=== PATIENT | female | born 1975 | race Caucasian/White ===

== ENCOUNTER 2017-09-30 22:39 | Observation (INO) | payer SELFPAY ==
[~2017-09-30] VITALS: Ht 167.6 cm; Wt 71.0 kg
[2017-09-30 23:24] VITALS: BP 142/93; PULSE 97; RESP 18; TEMP 98.4; O2SAT 94
[2017-09-30 23:31] LABS: BILIRUBIN, URINE NEG (NEG); BLOOD, URINE NEG (NEG); GLUCOSE,URINE NEG (NEG); KETONE, URINE NEG (NEG); MUCUS URINE FEW /lpf (OCC); NITRITE,URINE NEG (NEG); PH, URINE 5.5 (5.0-8.5); SQUAMOUS EPITHELIAL CELL URINE 3 /hpf (0-5); URINE COLOR YELLOW (YELLW/STRAW); URINE LEUKOCYTE ESTERASE NEG (NEG)
[2017-09-30 23:36] LABS: AUTOMATED NEUTROPHIL # 2.3 TH/MM3 (1.8-7.7); BASOPHIL # 0.1 TH/MM3 (0-0.2); BASOPHIL % 1.3 % (0.0-2.0); EOSINOPHIL # 0.8 TH/MM3 (0-0.4); EOSINOPHIL % 14.7 % (0.0-4.0); HEMATOCRIT 40.1 % (35.0-46.0); HEMOGLOBIN 13.2 GM/DL (11.6-15.3); LYMPH % 28.7 % (9.0-44.0); LYMPHOCYTE # 1.6 TH/MM3 (1.0-4.8); MEAN CELL VOLUME 88.6 FL (80.0-100.0); MEAN CORPUSCULAR HEMOGLOBIN 29.2 PG (27.0-34.0); MEAN CORPUSCULAR HGB CONC 32.9 % (32.0-36.0); MEAN PLATELET VOLUME 7.7 FL (7.0-11.0); MONO % 14.4 % (0.0-8.0); MONOCYTE # 0.8 TH/MM3 (0-0.9); NEUT % 40.9 % (16.0-70.0); PLATELET COUNT 347 TH/MM3 (150-450); RED BLOOD COUNT 4.52 MIL/MM3 (4.00-5.30); RED CELL DISTRIBUTION WIDTH 14.2 % (11.6-17.2); WHITE BLOOD COUNT 5.6 TH/MM3 (4.0-11.0)
[2017-09-30 23:48] LABS: BICARBONATE 27.5 MEQ/L (21.0-32.0); CALCIUM 8.7 MG/DL (8.5-10.1); CREATININE 0.64 MG/DL (0.50-1.00)
[2017-09-30 23:51] LABS: TROPONIN I 0.15 NG/ML (0.02-0.05)
[2017-10-01] VITALS (13 sets, daily range): BP systolic 105–123; BP diastolic 75–89; PULSE 81–103; RESP 16–22; TEMP 98–98.7; O2SAT 93–97
[2017-10-01] MEDS ORDERED: ZOLO100T PO (00:45)
[2017-10-01] MEDS ORDERED: SODIUM CHLORID 0.9% 500 ML INJ 500 ML IV ONE (00:45)
[2017-10-01] MEDS ORDERED: ASPIRIN 81 MG CHEW TAB PO ONE (00:45)
[2017-10-01] MEDS: NITROGLYCERIN 0.4 MG SL 25 TABS/BTL SL SCH ×3 (01:04→01:20)
[2017-10-01] MEDS ORDERED: IOHEXOL 350 MG/ML 10 ML VIAL (for RAD DIAG) IVCONTRAST ONE (01:14)
--- NOTE | 2017-10-01 01:34 | RADRPT ---
EXAM DATE/TIME: 10/01/2017 01:05 [place] COMPARISON: No previous studies available for comparison. INDICATIONS : Shortness of breath x 1 week. IV CONTRAST: 75 cc Omnipaque 350 (iohexol) IV RADIATION DOSE: 5.17 CTDIvol (mGy) MEDICAL HISTORY : None SURGICAL HISTORY : None. ENCOUNTER: Initial ACUITY: 1 week PAIN SCALE: 0/10 LOCATION: chest TECHNIQUE: Volumetric scanning of the chest was performed using a pulmonary embolism protocol MIP images were re constructed. Using automated exposure control and adjustment of the mA and/or kV according to patien t size, radiation dose was kept as low as reasonably achievable to obtain optimal diagnostic quality images. DICOM format image data is available electronically for review and comparison. Follow-up recommendations for detected pulmonary nodules are based at a minimum on nodule size and pa tient risk factors according to Fleischner Society Guidelines. FINDINGS: PULMONARY ARTERIES: No filling defects are seen in the pulmonary arteries through the segmental level. LUNGS: There is scattered areas of groundglass infiltrate seen throughout both upper and lower lobes. The la rgest area involves the medial right upper lobe. This has a crazy paving appearance. No mass or bronc hiectasis. PLEURAE: There is no pleural thickening or pleural effusion. MEDIASTINUM: There is good visualization of the great vessels of the middle mediastinum. No evidence of mediastin al or hilar adenopathy/mass. MUSCULOSKELETAL: There is a subacute right lateral sixth rib fracture. Some callus formation noted. MISCELLANEOUS: The visualized upper abdominal organs demonstrate no acute abnormality. CONCLUSION: 1. Scattered areas of infiltrate most pronounced within the right upper lobe. Infectious etiology is suspected. Followup studies to document. resolution suggested. 2. No pulmonary emboli. Hernán Mederos Jr., MD on October 01, 2017 at 1:28 Board Certified Radiologist. This report was verified electronically.
[2017-10-01] MEDS ORDERED: HEPARIN-D5W 25,000 U/250 ML 250 ML IV PRN (01:45)
[2017-10-01] MEDS ORDERED: cefTRIAXone INJ 1,000 MG in SODIUM CHLORIDE 0.9% INJ 100 ML IV ONE (01:45)
[2017-10-01] MEDS ORDERED: AZITHROMYCIN INJ 500 MG in SODIUM CHLOR 0.9% 250 ML INJ 250 ML IV ONE (01:45)
[2017-10-01] MEDS ORDERED: methylPREDNISolone SOD SUCC 125 MG/2 ML VIAL IV PUSH ONE (01:45)
[2017-10-01] MEDS ORDERED: SODIUM CHLORIDE 0.9% FLUSH 10 ML FLUSH IV FLUSH PRN (02:00)
[2017-10-01] MEDS ORDERED: NALOXONE HCL 0.4 MG/ML AMP IV PUSH PRN (02:00)
[2017-10-01] MEDS: RESP: ALBUTEROL 2.5 MG/IPRATROPIUM 0.5 MG NEB (SCH) INH ×2 (02:02→02:03)
--- NOTE | 2017-10-01 02:08 | PD ---
HPI Chief Complaint: Respiratory Symptoms Time Seen by Provider: 00:34 Travel History International Travel<30 days: No Contact w/Intl Traveler<30days: No Traveled to known affect area: No History of Present Illness HPI 42-year-old female arrives to the ER with shortness of breath and coughing. Shortness of breath has been bothersome for about a week. She reports coughing spells can be severe and are associated with shortness of breath. At the time of the ER evaluation she denies chest pain. She has had no fever. She has no family history coronary artery disease. She has no history of diabetes hypertension hyperlipidemia. She states she smokes about 5 cigarettes a week. No drugs or alcohol. PFSH Past Medical History Medical History: Denies Significant Hx ?: Not Past Surgical History Surgical History: No Previous Surgery Social History Alcohol Use: No Tobacco Use: Yes Substance Use: No Allergies-Medications (Allergen,Severity, Reaction): Coded Allergies: No Known Allergies (Unverified , 10/01/17) Reported Meds & Prescriptions Reported Meds & Active Scripts Active Reported Zoloft (Sertraline HCl) 100 Mg Tab 100 Mg PO DAILY Review of Systems Except as stated in HPI: all other systems reviewed are Neg General / Constitutional: No: Fever Physical Exam Narrative GENERAL: 42-year-old female pleasant well-nourished audible no acute distress Vital Signs Date Time Temp Pulse Resp B/P (MAP) Pulse Ox O2 Delivery O2 Flow Rate FiO2 10/01/17 01:15 81 18 121/80 (94) 95 Nasal Cannula 2.00 10/01/17 00:43 96 20 123/89 (100) 96 Room Air 10/01/17 00:43 83 20 96 Room Air 09/30/17 23:24 98.4 97 18 142/93 (109) 94 Room Air SKIN: Warm and dry. HEAD: Atraumatic. Normocephalic. EYES: Pupils equal and round. No scleral icterus. No injection or drainage. ENT: No nasal bleeding or discharge. Mucous membranes pink and moist. NECK: Trachea midline. No JVD. CARDIOVASCULAR: Tachycardia. Regular rhythm. RESPIRATORY: No accessory muscle use. Clear to auscultation. Breath sounds equal bilaterally. GASTROINTESTINAL: Abdomen soft, non-tender, nondistended. Hepatic and splenic margins not palpable. MUSCULOSKELETAL: Extremities without clubbing, cyanosis, or edema. No obvious deformities. NEUROLOGICAL: Awake and alert. No obvious cranial nerve deficits. Motor grossly within normal limits. Five out of 5 muscle strength in the arms and legs. Normal speech. PSYCHIATRIC: Appropriate mood and affect; insight and judgment normal. Data Data Last Documented VS Vital Signs Date Time Temp Pulse Resp B/P (MAP) Pulse Ox O2 Delivery O2 Flow Rate FiO2 10/01/17 01:15 81 18 121/80 (94) 95 Nasal Cannula 2.00 09/30/17 23:24 98.4 Orders Orders Electrocardiogram (09/30/17 ) Complete Blood Count With Diff (09/30/17 22:55) Basic Metabolic Panel (Bmp) (09/30/17 22:55) Troponin I (09/30/17 22:55) Ckmb (Isoenzyme) Profile (09/30/17 22:55) Urinalysis - C+S If Indicated (09/30/17 22:56) CKMB (09/30/17 23:12) CKMB% (09/30/17 23:12) Electrocardiogram (10/01/17 00:39) Ecg Monitoring (10/01/17 00:39) Iv Access Insert/Monitor (10/01/17 00:39) Oximetry (10/01/17 00:39) Aspirin Chew (Aspirin Chew) (10/01/17 00:45) Nitroglycerin Sl (Nitrostat Sl) (10/01/17 00:45) Sodium Chlorid 0.9% 500 Ml Inj (Ns 500 M (10/01/17 00:45) Ct Pulmonary Angiogram (10/01/17 00:39) Iohexol 350 Inj (Omnipaque 350 Inj) (10/01/17 01:14) Blood Culture (10/01/17 01:40) Ceftriaxone Inj (Rocephin Inj) (10/01/17 01:45) Azithromycin Inj (Zithromax Inj) (10/01/17 01:45) Albuterol-Ipratropium Neb (Duoneb Neb) (10/01/17 01:45) Methylprednisolone So Succ Inj (Solumedr (10/01/17 01:45) Heparin-D5w 25,000 U/250 Ml (Heparin-D5w (10/01/17 01:45) Place In Observation (10/01/17 ) Vital Signs (Adult) Q4H (10/01/17 01:54) Activity Oob With Assistance (10/01/17 01:54) Veterinary Anatomist / Telemetry .CONTINUOUS (10/01/17 01:54) Sodium Chloride 0.9% Flush (Ns Flush) (10/01/17 02:00) Sodium Chloride 0.9% Flush (Ns Flush) (10/01/17 09:00) Basic Metabolic Panel (Bmp) (10/02/17 06:00) Complete Blood Count With Diff (10/02/17 06:00) Creatine Kinase (Cpk) (10/01/17 05:30) Creatine Kinase (Cpk) (10/01/17 11:30) Troponin I (10/01/17 05:30) Troponin I (10/01/17 11:30) Electrocardiogram (10/01/17 05:30) Electrocardiogram (10/01/17 11:30) Case Management Consult (10/01/17 01:54) Naloxone Inj (Narcan Inj) (10/01/17 02:00) Ceftriaxone Inj (Rocephin Inj) (10/02/17 02:00) Azithromycin (Zithromax) (10/01/17 09:00) Admit Order (Ed Use Only) (10/01/17 ) Veterinary Anatomist / Telemetry LONI.Q8H (10/01/17 01:56) Vital Signs (Adult) Q4H (10/01/17 01:56) Diet Npo (10/01/17 Breakfast) Activity Bed Rest (10/01/17 01:56) Notify Dr: Other (10/01/17 01:56) Labs Laboratory Tests Test 09/30/17 23:12 White Blood Count 5.6 TH/MM3 Red Blood Count 4.52 MIL/MM3 Hemoglobin 13.2 GM/DL Hematocrit 40.1 % Mean Corpuscular Volume 88.6 FL Mean Corpuscular Hemoglobin 29.2 PG Mean Corpuscular Hemoglobin Concent 32.9 % Red Cell Distribution Width 14.2 % Platelet Count 347 TH/MM3 Mean Platelet Volume 7.7 FL Neutrophils (%) (Auto) 40.9 % Lymphocytes (%) (Auto) 28.7 % Monocytes (%) (Auto) 14.4 % Eosinophils (%) (Auto) 14.7 % Basophils (%) (Auto) 1.3 % Neutrophils # (Auto) 2.3 TH/MM3 Lymphocytes # (Auto) 1.6 TH/MM3 Monocytes # (Auto) 0.8 TH/MM3 Eosinophils # (Auto) 0.8 TH/MM3 Basophils # (Auto) 0.1 TH/MM3 CBC Comment DIFF FINAL Differential Comment Urine Color YELLOW Urine Turbidity CLEAR Urine pH 5.5 Urine Specific [place] 1.033 Urine Protein TRACE mg/dL Urine Glucose (UA) NEG mg/dL Urine Ketones NEG mg/dL Urine Occult Blood NEG Urine Nitrite NEG Urine Bilirubin NEG Urine Urobilinogen 2.0 MG/DL Urine Leukocyte Esterase NEG Urine RBC 1 /hpf Urine WBC 1 /hpf Urine Squamous Epithelial Cells 3 /hpf Urine Mucus FEW /lpf Microscopic Urinalysis Comment CULT NOT INDICATED Blood Urea Nitrogen 18 MG/DL Creatinine 0.64 MG/DL Random Glucose 97 MG/DL Calcium Level 8.7 MG/DL Sodium Level 140 MEQ/L Potassium Level 3.5 MEQ/L Chloride Level 106 MEQ/L Carbon Dioxide Level 27.5 MEQ/L Anion Gap 7 MEQ/L Estimat Glomerular Filtration Rate 101 ML/MIN Total Creatine Kinase 291 U/L Creatine Kinase MB 6.8 NG/ML Creatine Kinase MB % 2.3 % Troponin I 0.15 NG/ML [facility] Medical Decision Making Medical Screen Exam Complete: Yes Emergency Medical Condition: Yes Medical Record Reviewed: Yes Differential Diagnosis NSTEMI, unstable angina, coronary vasospasm, PE, PTX, aortic dissection, pericarditis, myocarditis, endocarditis, PNA, esophageal disease, aneurysm, musculoskeletal etiologies, anxiety, cocaine/sympathomimetic abuse Narrative Course EKG shows sinus rhythm with a rate of 81 normal axis intervals no acute ischemic injury pattern CBC & BMP Diagram 09/30/17 23:12 Calcium Level 8.7 Troponin [address] Angiography 10/01/17 0039 Signed Impressions: Service Date/Time: Sunday, October 01, 2017 01:05 - CONCLUSION: 1. Scattered areas of infiltrate most pronounced within the right upper lobe. Infectious etiology is suspected. Followup studies to document. resolution suggested. 2. No pulmonary emboli. Hernán Mederos Jr., MD The patient has an elevated troponin of 0.15. Occlusive coronary disease is considered much less likely. Patient has no evidence of acute ischemia on EKG CT angiography results appreciated. Rocephin azithromycin started. Blood cultures drawn. Case discussed with hospitalist service Dr. Ontiveros. Critical Care Narrative Aggregate critical care time was 35 minutes. Time to perform other separately billable procedures was not included in the critical care time. My time did not include minutes spent treating any other patients simultaneously or on activities that did not directly contribute to the patient's treatment. The services I provided to this patient were to treat and/or prevent clinically significant deterioration that could result in: Cardiopulmonary arrest I provided critical care services requiring my management, as noted below: Chart data review, documentation time, medication orders and management, vital sign assessments/reviewing monitor data, ordering and reviewing lab tests, ordering and interpreting/reviewing x-rays and diagnostic studies, care of the patient and discussion of the patient with the admitting physicians. Diagnosis Primary Impression: PNA (pneumonia) Qualified Codes: J18.9 - Pneumonia, unspecified organism Additional Impression: Elevated troponin I level Admitting Information Admitting Physician Requests: Austen Hickman MD Oct 01, 2017 02:08
--- NOTE | 2017-10-01 02:50 | HHI.HP ---
HPI Service [facility] Primary Care Physician No Primary Care Physician Admission Diagnosis Dyspnea; PNA Diagnoses: Chief Complaint: dyspnea Travel History International Travel<30 Days: No Contact w/Intl Traveler <30 Da: No Traveled to Known Affected Are: No History of Present Illness 42 y/o female with a history of depression presented to the ED with complaints of shortness of breath. She states she was treated for bronchitis 1 month ago with antibiotics and for the last 1 week she has felt worse. She feels very short of breath, wheezing, productive cough with green sputum. She states she has been having fevers and chills at home with unknown temp. She has not been able to smoke due to the short of breath and has just been laying in bed. She denies any chest pain, but states when she coughs she has muscular rib pain. Review of Systems Except as stated in HPI: all other systems reviewed are Neg Past Family Social History Past Medical History depression Past Surgical History Patient denies any surgical history Reported Medications Reported Meds & Active Scripts Active Reported Zoloft (Sertraline HCl) 100 Mg Tab 100 Mg PO DAILY Allergies: Coded Allergies: No Known Allergies (Unverified , 10/01/17) Active Ordered Medications Current Medications Medications (Trade) Dose Ordered Sig/Marlen Route Start Time Stop Time Status Last Admin (NS Flush) 2 ml UNSCH PRN IV FLUSH 10/01/17 02:00 (NS Flush) 2 ml BID IV FLUSH 10/01/17 09:00 (Narcan Inj) 0.4 mg UNSCH PRN IV PUSH 10/01/17 02:00 Ceftriaxone Sodium 1000 mg/ Sodium Chloride 100 ml @ 200 mls/hr Q24H IV 10/02/17 02:00 (Zithromax) 500 mg DAILY PO 10/01/17 09:00 (Duoneb Neb) 1 ampule Q4HR NEB NEB 10/01/17 03:00 (Duoneb Neb) 1 ampule Q2HR NEB PRN NEB 10/01/17 03:00 (Mucinex Er) 600 mg BID PO 10/01/17 09:00 Family History Patient denies any family history, no heart disease or cancer Social History Tobacco use: a few cigarettes a day Alcohol use: rarely Physical Exam Vital Signs Vital Signs Date Time Temp Pulse Resp B/P (MAP) Pulse Ox O2 Delivery O2 Flow Rate FiO2 10/01/17 01:15 81 18 121/80 (94) 95 Nasal Cannula 2.00 10/01/17 00:43 96 20 123/89 (100) 96 Room Air 10/01/17 00:43 83 20 96 Room Air 09/30/17 23:24 98.4 97 18 142/93 (109) 94 Room Air Physical Exam GENERAL: This is a well-nourished, well-developed patient, in no apparent distress. SKIN: No rashes, ecchymoses or lesions. Cool and dry. HEAD: Atraumatic. Normocephalic. EYES: Pupils equal round and reactive. ENT: Nose without bleeding, purulent drainage or septal hematoma. Airway patent. NECK: Trachea midline. No JVD or lymphadenopathy. CARDIOVASCULAR: Regular rate and rhythm without murmurs, gallops, or rubs. RESPIRATORY: Right upper lobe wheezing, bronchial lung sounds throughout GASTROINTESTINAL: Abdomen soft, non-tender, nondistended. MUSCULOSKELETAL: Extremities without clubbing, cyanosis, or edema. No calf tenderness. NEUROLOGICAL: Awake and alert. Motor and sensory grossly within normal limits. Normal speech. Laboratory Laboratory Tests Test 09/30/17 23:12 White Blood Count 5.6 Red Blood Count 4.52 Hemoglobin 13.2 Hematocrit 40.1 Mean Corpuscular Volume 88.6 Mean Corpuscular Hemoglobin 29.2 Mean Corpuscular Hemoglobin Concent 32.9 Red Cell Distribution Width 14.2 Platelet Count 347 Mean Platelet Volume 7.7 Neutrophils (%) (Auto) 40.9 Lymphocytes (%) (Auto) 28.7 Monocytes (%) (Auto) 14.4 Eosinophils (%) (Auto) 14.7 Basophils (%) (Auto) 1.3 Neutrophils # (Auto) 2.3 Lymphocytes # (Auto) 1.6 Monocytes # (Auto) 0.8 Eosinophils # (Auto) 0.8 Basophils # (Auto) 0.1 CBC Comment DIFF FINAL Differential Comment Urine Color YELLOW Urine Turbidity CLEAR Urine pH 5.5 Urine Specific [place] 1.033 Urine Protein TRACE Urine Glucose (UA) NEG Urine Ketones NEG Urine Occult Blood NEG Urine Nitrite NEG Urine Bilirubin NEG Urine Urobilinogen 2.0 Urine Leukocyte Esterase NEG Urine RBC 1 Urine WBC 1 Urine Squamous Epithelial Cells 3 Urine Mucus FEW Microscopic Urinalysis Comment CULT NOT INDICATED Blood Urea Nitrogen 18 Creatinine 0.64 Random Glucose 97 Calcium Level 8.7 Sodium Level 140 Potassium Level 3.5 Chloride Level 106 Carbon Dioxide Level 27.5 Anion Gap 7 Estimat Glomerular Filtration Rate 101 Total Creatine Kinase 291 Creatine Kinase MB 6.8 Creatine Kinase MB % 2.3 Troponin I 0.15 Date/Time Source Procedure Growth Status 10/01/17 02:33 Blood Peripheral Aerobic Blood Culture Pending Received 10/01/17 02:33 Blood Peripheral Anaerobic Blood Culture Pending Received Result Diagram: 09/30/17 2312 09/30/[address] Angiography 10/01/17 0039 Signed Impressions: Service Date/Time: Friday, October 01, 2017 01:05 - CONCLUSION: 1. Scattered areas of infiltrate most pronounced within the right upper lobe. Infectious etiology is suspected. Followup studies to document. resolution suggested. 2. No pulmonary emboli. MD Gustavo Colón Jr. VTE Risk Assessment Caprini VTE Risk Assessment: No/Low Risk (score <= 1) Caprini Risk Assessment Model Point Value = 1 Point Value = 2 Point Value = 3 Point Value = 5 Age 41-60 Minor surgery BMI > 25 kg/m2 Swollen legs Varicose veins or History of unexplained or recurrent spontaneous Oral contraceptives or hormone replacement Sepsis (< 1 month) Serious lung disease, including pneumonia (< 1 month) Abnormal pulmonary function Acute myocardial infarction Congestive heart failure (< 1 month) History of inflammatory bowel disease Medical patient at bed rest Age 61-74 Arthroscopic surgery Major open surgery (> 45 min) Laparoscopic surgery (> 45 min) Malignancy Confined to bed (> 72 hours) Immobilizing plaster cast Central venous access Age >= 75 History of VTE Family history of VTE Factor V Leiden Prothrombin [id number] Lupus anticoagulant Anticardiolipin antibodies Elevated serum homocysteine Heparin-induced thrombocytopenia Other congenital or acquired thrombophilia Stroke (< 1 month) Elective arthroplasty Hip, pelvis, or leg fracture Acute spinal cord injury (< 1 month) Prophylaxis Regimen Total Risk Factor Score Risk Level Prophylaxis Regimen 0-1 Low Early ambulation 2 Moderate Order ONE of the following: *Sequential Compression Device (SCD) *Heparin 5000 units SQ BID 3-4 Higher Order ONE of the following medications: *Heparin 5000 units SQ TID *Enoxaparin/Lovenox 40 mg SQ daily (WT < 150 kg, CrCl > 30 mL/min) *Enoxaparin/Lovenox 30 mg SQ daily (WT < 150 kg, CrCl > 10-29 mL/min) *Enoxaparin/Lovenox 30 mg SQ BID (WT < 150 kg, CrCl > 30 mL/min) AND/OR *Sequential Compression Device (SCD) 5 or more Highest Order ONE of the following medications: *Heparin 5000 units SQ TID (Preferred with Epidurals) *Enoxaparin/Lovenox 40 mg SQ daily (WT < 150 kg, CrCl > 30 mL/min) *Enoxaparin/Lovenox 30 mg SQ daily (WT < 150 kg, CrCl > 10-29 mL/min) *Enoxaparin/Lovenox 30 mg SQ BID (WT < 150 kg, CrCl > 30 mL/min) AND *Sequential Compression Device (SCD) Assessment and Plan Problem List: (1) PNA (pneumonia) ICD Code: J18.9 - Pneumonia, unspecified organism Status: Acute (2) Elevated troponin I level ICD Code: R74.8 - Abnormal levels of other serum enzymes Status: Acute Assessment and Plan 42 y/o female with a history of depression presented to the ED with complaints of shortness of breath. PNA, unilateral, right upper CT angiogram reviewed and shows Scattered areas of infiltrate most pronounced within the right upper lobe. -Duonebs scheduled and prn -Solumedrol IV -Protonix po for GI prophylaxis -IV antibiotics: Zithromax and Rocephin -Guaifenesin BID -Sputum culture ordered Elevated troponin, patient denies chest pain, likely due to excessive coughing r/o ACS Troponin .15, ck-mb 6.8 -Serial troponin and EKGs -CPK in AM Depression, chronic -Resume home medications zoloft DVT prophylaxis: SCDs Discussed Condition With Patient and RN Problem Qualifiers (1) PNA (pneumonia): Qualified Codes: J18.1 - Lobar pneumonia, unspecified organism Opal Romero Oct 01, 2017 02:50
[2017-10-01] MEDS ORDERED: RESP: ALBUTEROL 2.5 MG/IPRATROPIUM 0.5 MG NEB (PRN) NEB (03:00)
[2017-10-01] MEDS: RESP: ALBUTEROL 2.5 MG/IPRATROPIUM 0.5 MG NEB (SCH) NEB ×6 (03:12→20:52)
[2017-10-01 04:41] LABS: TROPONIN I 0.16 NG/ML (0.02-0.05)
[2017-10-01] MEDS: methylPREDNISolone SOD SUCC 40 MG/1 ML VIAL IV PUSH SCH ×3 (07:56→20:03)
[2017-10-01] MEDS: guaiFENesin E.R. 600 MG TAB PO SCH ×2 (08:21→20:03)
[2017-10-01] MEDS: PANTOPRAZOLE SOD 20 MG DELAYED RELEASE TAB PO SCH (08:22)
[2017-10-01] MEDS: SODIUM CHLORIDE 0.9% FLUSH 10 ML FLUSH IV FLUSH SCH ×2 (08:22→20:03)
[2017-10-01] MEDS: SERTRALINE HCL 100 MG TAB PO SCH (08:22)
[2017-10-01] MEDS: AZITHROMYCIN 250 MG TAB PO SCH (08:22)
--- NOTE | 2017-10-01 10:24 | HHI.PR ---
Subjective Remarks Follow-up visit pneumonia, elevated troponin. Patient seen and examined today. Reports she is breathing a lot better but continues to have some wheezing. Denies pain and discomfort. Denies chest pain, palpitations, headaches, dizziness. Denies fevers, chills, n/v/d. Denies dysuria. Objective Vitals Vital Signs Date Time Temp Pulse Resp B/P (MAP) Pulse Ox O2 Delivery O2 Flow Rate FiO2 10/01/17 08:28 94 21 10/01/17 07:50 98.6 84 19 117/77 (90) 93 Room Air 10/01/17 04:51 88 16 111/75 (87) 96 Room Air 10/01/17 03:14 94 10/01/17 01:15 81 18 121/80 (94) 95 Nasal Cannula 2.00 10/01/17 00:43 96 20 123/89 (100) 96 Room Air 10/01/17 00:43 83 20 96 Room Air 09/30/17 23:24 98.4 97 18 142/93 (109) 94 Room Air Result Diagram: 09/30/17 2312 09/30/17 [address] Angiography 10/01/17 0039 Signed Impressions: Service Date/Time: Sunday, October 01, 2017 01:05 - CONCLUSION: 1. Scattered areas of infiltrate most pronounced within the right upper lobe. Infectious etiology is suspected. Followup studies to document. resolution suggested. 2. No pulmonary emboli. Hernán Mederos Jr., MD Objective Remarks GENERAL: This is a well-nourished, well-developed patient, in no apparent distress. SKIN: Warm and dry. Tattoos back area HEENT: Normocephalic. Pupils equal round and reactive. Nose without bleeding. Airway patent. NECK: Trachea midline. CARDIOVASCULAR: Regular rate and rhythm without murmurs, gallops, or rubs. RESPIRATORY: Expiratory wheezes. Diminished at the bases. GASTROINTESTINAL: Abdomen soft, non-tender, nondistended. Bowel Sounds normoactive x4. MUSCULOSKELETAL: Extremities without clubbing, cyanosis, or edema. NEUROLOGICAL: Awake and alert. Oriented to time, place, person. No focal neuro deficit. Moves all extremities. Normal speech. A/P Problem List: (1) PNA (pneumonia) ICD Code: J18.9 - Pneumonia, unspecified organism Status: Acute (2) Elevated troponin I level ICD Code: R74.8 - Abnormal levels of other serum enzymes Status: Acute Assessment and Plan 42 y/o female with a history of depression presented to the ED with complaints of shortness of breath. PNA, unilateral, right upper Possible Underlying COPD, smoker -CT angiogram reviewed and shows Scattered areas of infiltrate most pronounced within the right upper lobe. -Duonebs scheduled and prn -Solumedrol IV -Protonix po for GI prophylaxis -IV antibiotics: Zithromax and Rocephin -Guaifenesin BID -Sputum culture pending results -Blood cultures pending Elevated troponin, patient denies chest pain, likely due to excessive coughing r/o ACS Troponin 0.15, ck-mb 6.8 -Possibly demand ischemia -Serial troponin 0.15-->0.16 -Serial EKG. EKG reviewed SR without ST changes noted -CPK improving Depression, chronic -Resume home medications zoloft DVT prophylaxis: SCDs Problem Qualifiers (1) PNA (pneumonia): Qualified Codes: J18.1 - Lobar pneumonia, unspecified organism Angeles Leary Oct 01, 2017 10:24
[2017-10-01 13:06] LABS: TROPONIN I 0.05 NG/ML (0.02-0.05)
--- NOTE | 2017-10-01 22:54 | EKG ---
Date Performed: 10/01/2017 Time Performed: 11:28:02 PTAGE: 42 years EKG: Sinus rhythm WITH MARKED SINUS ARRHYTHMIA BORDERLINE ECG PREVIOUS TRACING : 10/01/2017 02.28 Since the previous tracing, no significant change noted DOCTOR: Shaheen Adames Interpretating Date/Time 10/01/2017 22:54:13
--- NOTE | 2017-10-01 23:26 | EKG ---
Date Performed: 10/01/2017 Time Performed: 02:28:29 PTAGE: 42 years EKG: Sinus rhythm NORMAL ECG NO PREVIOUS TRACING DOCTOR: Shaheen Adames Interpretating Date/Time 10/01/2017 23:24:57
--- NOTE | 2017-10-01 23:29 | EKG ---
Date Performed: 10/01/2017 Time Performed: 00:48:43 PTAGE: 42 years EKG: Sinus rhythm BORDERLINE RIGHT AXIS DEVIATION BORDERLINE ECG PREVIOUS TRACING : 09/30/2017 23.01 Since the previous tracing, no significant change noted DOCTOR: Shaheen Adames Interpretating Date/Time 10/01/2017 23:26:24
--- NOTE | 2017-10-01 23:31 | EKG ---
Date Performed: 09/30/2017 Time Performed: 23:01:49 PTAGE: 42 years EKG: Sinus rhythm WITH SINUS ARRHYTHMIA NORMAL ECG NO PREVIOUS TRACING DOCTOR: Shaheen Adames Interpretating Date/Time 10/01/2017 23:27:47
[2017-10-02] VITALS (9 sets, daily range): BP systolic 106–128; BP diastolic 69–88; PULSE 72–97; RESP 16–20; TEMP 98–98.8; O2SAT 93–96
[2017-10-02] MEDS: RESP: ALBUTEROL 2.5 MG/IPRATROPIUM 0.5 MG NEB (SCH) NEB ×5 (00:09→21:01)
[2017-10-02] MEDS: cefTRIAXone INJ 1,000 MG in SODIUM CHLORIDE 0.9% INJ 100 ML IV SCH (02:11)
[2017-10-02] MEDS: methylPREDNISolone SOD SUCC 40 MG/1 ML VIAL IV PUSH SCH ×4 (02:11→20:02)
--- NOTE | 2017-10-02 07:34 | HHI.PR ---
Subjective Remarks Says she did not have chest pain yesterday and she felt only very short of breath. She does not have pain at this time. Shortness of breath is improved. No fever chills nausea or vomiting Objective Vitals Vital Signs Date Time Temp Pulse Resp B/P (MAP) Pulse Ox O2 Delivery O2 Flow Rate FiO2 10/02/17 04:23 98.3 97 16 124/87 (99) 95 10/02/17 00:41 98.4 93 16 118/75 (89) 93 10/01/17 21:43 103 10/01/17 20:52 94 10/01/17 20:15 98.0 92 16 105/79 (88) 94 10/01/17 18:00 93 10/01/17 18:00 93 10/01/17 15:57 98.7 100 20 111/76 (88) 97 10/01/17 13:12 98.6 97 20 119/84 (96) 94 10/01/17 11:59 10/01/17 11:57 98.0 95 22 116/80 (92) 93 Room Air 10/01/17 08:28 94 21 10/01/17 07:50 98.6 84 19 117/77 (90) 93 Room Air I/O 10/01/17 10/01/17 10/01/17 10/02/17 10/02/17 10/02/17 07:00 15:00 23:00 07:00 15:00 23:00 Intake Total 200 ml Balance 200 ml Intake Oral 200 ml # Voids 1 Result Diagram: 09/30/17 2312 09/30/[address] Angiography 10/01/17 0039 Signed Impressions: Service Date/Time: Sunday, October 01, 2017 01:05 - CONCLUSION: 1. Scattered areas of infiltrate most pronounced within the right upper lobe. Infectious etiology is suspected. Followup studies to document. resolution suggested. 2. No pulmonary emboli. Hernán Mederos Jr., MD Objective Remarks GENERAL: This is a well-nourished, well-developed patient, in no apparent distress. SKIN: Warm and dry. Tattoos back area HEENT: Normocephalic. Pupils equal round and reactive. Nose without bleeding. Airway patent. NECK: Trachea midline. CARDIOVASCULAR: Regular rate and rhythm without murmurs, gallops, or rubs. RESPIRATORY: Expiratory wheezes. Diminished at the bases. GASTROINTESTINAL: Abdomen soft, non-tender, nondistended. Bowel Sounds normoactive x4. MUSCULOSKELETAL: Extremities without clubbing, cyanosis, or edema. NEUROLOGICAL: Awake and alert. Oriented to time, place, person. No focal neuro deficit. Moves all extremities. Normal speech. A/P Problem List: (1) PNA (pneumonia) ICD Code: J18.9 - Pneumonia, unspecified organism Status: Acute (2) Elevated troponin I level ICD Code: R74.8 - Abnormal levels of other serum enzymes Status: Acute Assessment and Plan 42 y/o female with a history of depression presented to the ED with complaints of shortness of breath. PNA, unilateral, right upper Possible Underlying COPD, smoker -CT angiogram reviewed and shows Scattered areas of infiltrate most pronounced within the right upper lobe. -Duonebs scheduled and prn -Solumedrol IV -Protonix po for GI prophylaxis -IV antibiotics: Zithromax and Rocephin -Guaifenesin BID -Sputum culture pending results -Blood cultures pending Elevated troponin, patient denies chest pain, likely due to excessive coughing r/o ACS Troponin 0.15, ck-mb 6.8 -Possibly demand ischemia -Serial troponin 0.15-->0.16 -Serial EKG. EKG reviewed SR without ST changes noted -CPK improving Depression, chronic -Resume home medications zoloft DVT prophylaxis: SCDs 42 y/o female with a history of depression presented to the ED with complaints of shortness of breath. PNA, unilateral, right upper Possible Underlying COPD, smoker -CT angiogram reviewed and shows Scattered areas of infiltrate most pronounced within the right upper lobe. -Duonebs scheduled and prn -Solumedrol IV -Protonix po for GI prophylaxis -IV antibiotics: Zithromax and Rocephin -Guaifenesin BID -Sputum culture pending results -Blood cultures pending Elevated troponin, patient denies chest pain r/o ACS Troponin 0.15, ck-mb 6.8 -Possibly demand ischemia -Serial troponin 0.15-->0.16 -Serial EKG. EKG reviewed SR without ST changes noted -CPK improving Depression, chronic -Resume home medications zoloft DVT prophylaxis: SCDs Discharge when improved. Possible discharge in 1 or 2 days. Sputum and blood cultures are pending. Problem Qualifiers (1) PNA (pneumonia): Qualified Codes: J18.1 - Lobar pneumonia, unspecified organism Violet Coleman MD Oct 02, 2017 07:33
[2017-10-02] MEDS: SERTRALINE HCL 100 MG TAB PO SCH (08:03)
[2017-10-02] MEDS: guaiFENesin E.R. 600 MG TAB PO SCH ×2 (08:03→20:02)
[2017-10-02] MEDS: AZITHROMYCIN 250 MG TAB PO SCH (08:04)
[2017-10-02] MEDS: PANTOPRAZOLE SOD 20 MG DELAYED RELEASE TAB PO SCH (08:04)
[2017-10-02] MEDS: SODIUM CHLORIDE 0.9% FLUSH 10 ML FLUSH IV FLUSH SCH ×2 (08:05→20:02)
[2017-10-02 08:15] LABS: AUTOMATED NEUTROPHIL # 8.8 TH/MM3 (1.8-7.7); BASOPHIL % 0.2 % (0.0-2.0); EOSINOPHIL % 0.1 % (0.0-4.0); HEMATOCRIT 36.2 % (35.0-46.0); HEMOGLOBIN 12.2 GM/DL (11.6-15.3); LYMPH % 7.9 % (9.0-44.0); LYMPHOCYTE # 0.8 TH/MM3 (1.0-4.8); MEAN CELL VOLUME 87.9 FL (80.0-100.0); MEAN CORPUSCULAR HEMOGLOBIN 29.7 PG (27.0-34.0); MEAN CORPUSCULAR HGB CONC 33.8 % (32.0-36.0); MEAN PLATELET VOLUME 7.8 FL (7.0-11.0); MONO % 3.6 % (0.0-8.0); MONOCYTE # 0.4 TH/MM3 (0-0.9); NEUT % 88.2 % (16.0-70.0); PLATELET COUNT 365 TH/MM3 (150-450); RED BLOOD COUNT 4.11 MIL/MM3 (4.00-5.30); RED CELL DISTRIBUTION WIDTH 13.9 % (11.6-17.2); WHITE BLOOD COUNT 9.9 TH/MM3 (4.0-11.0)
[2017-10-02 08:29] LABS: BICARBONATE 24.4 MEQ/L (21.0-32.0); CALCIUM 8.9 MG/DL (8.5-10.1); CREATININE 0.61 MG/DL (0.50-1.00)
[2017-10-02] MEDS ORDERED: ACETAMINOPHEN 325 MG TAB PO PRN (17:00)
[2017-10-03] MEDS: RESP: ALBUTEROL 2.5 MG/IPRATROPIUM 0.5 MG NEB (SCH) NEB ×3 (00:27→08:17)
[2017-10-03 02:28] VITALS: BP 116/74; PULSE 92; RESP 16; TEMP 98; O2SAT 98
[2017-10-03] MEDS: methylPREDNISolone SOD SUCC 40 MG/1 ML VIAL IV PUSH SCH ×2 (02:32→09:17)
[2017-10-03] MEDS: cefTRIAXone INJ 1,000 MG in SODIUM CHLORIDE 0.9% INJ 100 ML IV SCH (02:33)
[2017-10-03 07:31] VITALS: PULSE 68
[2017-10-03] MEDS ORDERED: MEDR4PAK PO (07:40)
[2017-10-03] MEDS ORDERED: AZIT250T3 PO (07:40)
[2017-10-03] MEDS ORDERED: guaiFENesin ER PO (07:40)
[2017-10-03 07:41] VITALS: BP 116/80; PULSE 78; RESP 18; TEMP 98.1; O2SAT 97
[2017-10-03] MEDS ORDERED: CEFU1TAB18 PO (07:41)
--- NOTE | 2017-10-03 07:43 | HHI.DCPOC ---
Discharge Care Plan Diagnosis: (1) PNA (pneumonia) (2) Elevated troponin I level Your Health Problems Are: Inflammation Cough Shortness of Breath Goals to Promote Your Health * To prevent worsening of your condition and complications * To maintain your health at the optimal level Directions to Meet Your Goals Take your medications as prescribed Follow your dietary instruction Follow activity as directed Keep your appointments as scheduled Take your immunizations and boosters as scheduled If your symptoms worsen call your PCP, if no PCP go to Urgent Care Center or Emergency Room Smoking is Dangerous to Your Health. Avoid second hand smoke Call the 24-hour hour crisis hotline for domestic abuse at [place] Leary Oct 03, 2017 07:43
[2017-10-03] MEDS: PANTOPRAZOLE SOD 20 MG DELAYED RELEASE TAB PO SCH (09:17)
[2017-10-03] MEDS: AZITHROMYCIN 250 MG TAB PO SCH (09:17)
[2017-10-03] MEDS: SERTRALINE HCL 100 MG TAB PO SCH (09:17)
[2017-10-03] MEDS: SODIUM CHLORIDE 0.9% FLUSH 10 ML FLUSH IV FLUSH SCH (09:17)
[2017-10-03] MEDS: guaiFENesin E.R. 600 MG TAB PO SCH (09:17)
--- NOTE | 2017-10-03 09:44 | HHI.DS ---
Discharge Summary Admission Date Oct 01, 2017 at 01:59 Discharge Date: Oct 04, 2017 Admitting Diagnosis Dyspnea; PNA (1) PNA (pneumonia) ICD Code: J18.9 - Pneumonia, unspecified organism Status: Acute (2) Elevated troponin I level ICD Code: R74.8 - Abnormal levels of other serum enzymes Status: Acute Procedures none Brief History - From Admission 42 y/o female with a history of depression presented to the ED with complaints of shortness of breath. She states she was treated for bronchitis 1 month ago with antibiotics and for the last 1 week she has felt worse. She feels very short of breath, wheezing, productive cough with green sputum. She states she has been having fevers and chills at home with unknown temp. She has not been able to smoke due to the short of breath and has just been laying in bed. She denies any chest pain, but states when she coughs she has muscular rib pain. CBC/BMP: 10/02/17 0724 10/02/17 0724 Significant Findings Laboratory Tests Test 09/30/17 23:12 10/01/17 03:56 10/01/17 11:25 10/02/17 07:24 Monocytes (%) (Auto) 14.4 % (0.0-8.0) Eosinophils (%) (Auto) 14.7 % (0.0-4.0) Eosinophils # (Auto) 0.8 TH/MM3 (0-0.4) Urine Mucus FEW /lpf (OCC) Total Creatine Kinase 291 U/L (26-192) 241 U/L (26-192) 231 U/L (26-192) Creatine Kinase MB 6.8 NG/ML (0.5-3.6) 4.9 NG/ML (0.5-3.6) 4.1 NG/ML (0.5-3.6) Troponin I 0.15 NG/ML (0.02-0.05) 0.16 NG/ML (0.02-0.05) Neutrophils (%) (Auto) 88.2 % (16.0-70.0) Lymphocytes (%) (Auto) 7.9 % (9.0-44.0) Neutrophils # (Auto) 8.8 TH/MM3 (1.8-7.7) Lymphocytes # (Auto) 0.8 TH/MM3 (1.0-4.8) Random Glucose 139 MG/DL (74-106) Chloride Level 108 MEQ/L (98-107) Imaging Last Impressions CT Angiography 10/01/17 0039 Signed Impressions: Service Date/Time: Sunday, October 01, 2017 01:05 - CONCLUSION: 1. Scattered areas of infiltrate most pronounced within the right upper lobe. Infectious etiology is suspected. Followup studies to document. resolution suggested. 2. No pulmonary emboli. Hernán Mederos Jr., MD PE at Discharge GENERAL: This is a well-nourished, well-developed patient, in no apparent distress. SKIN: Warm and dry. Tattoos back area HEENT: Normocephalic. Pupils equal round and reactive. Nose without bleeding. Airway patent. NECK: Trachea midline. CARDIOVASCULAR: Regular rate and rhythm without murmurs, gallops, or rubs. RESPIRATORY: Expiratory wheezes. Diminished at the bases. GASTROINTESTINAL: Abdomen soft, non-tender, nondistended. Bowel Sounds normoactive x4. MUSCULOSKELETAL: Extremities without clubbing, cyanosis, or edema. NEUROLOGICAL: Awake and alert. Oriented to time, place, person. No focal neuro deficit. Moves all extremities. Normal speech. Pt update on day of discharge In bed ppears in nad. Not much cpugh. No sob sattign wellon room air. Says no chest pain or sob. No fevr or chills .Wants to fgo home Hospital Course GENERAL: This is a well-nourished, well-developed patient, in no apparent distress. SKIN: Warm and dry. Tattoos back area HEENT: Normocephalic. Pupils equal round and reactive. Nose without bleeding. Airway patent. NECK: Trachea midline. CARDIOVASCULAR: Regular rate and rhythm without murmurs, gallops, or rubs. RESPIRATORY: Expiratory wheezes. Diminished at the bases. GASTROINTESTINAL: Abdomen soft, non-tender, nondistended. Bowel Sounds normoactive x4. MUSCULOSKELETAL: Extremities without clubbing, cyanosis, or edema. NEUROLOGICAL: Awake and alert. Oriented to time, place, person. No focal neuro deficit. Moves all extremities. Normal speech. Plan A/P Problem List: (1) PNA (pneumonia) ICD Code: J18.9 - Pneumonia, unspecified organism Status: Acute (2) Elevated troponin I level ICD Code: R74.8 - Abnormal levels of other serum enzymes Status: Acute Assessment and Plan 42 y/o female with a history of depression presented to the ED with complaints of shortness of breath. PNA, unilateral, right upper Possible Underlying COPD, smoker -CT angiogram reviewed and shows Scattered areas of infiltrate most pronounced within the right upper lobe. -Duonebs scheduled and prn -Solumedrol IV -Protonix po for GI prophylaxis -IV antibiotics: Zithromax and Rocephin -Guaifenesin BID -Sputum culture pending results -Blood cultures pending Elevated troponin, patient denies chest pain, likely due to excessive coughing r/o ACS Troponin 0.15, ck-mb 6.8 -Possibly demand ischemia -Serial troponin 0.15-->0.16 -Serial EKG. EKG reviewed SR without ST changes noted -CPK improving Depression, chronic -Resume home medications zoloft DVT prophylaxis: SCDs 42 y/o female with a history of depression presented to the ED with complaints of shortness of breath. PNA, unilateral, right upper Possible Underlying COPD, smoker -CT angiogram reviewed and shows Scattered areas of infiltrate most pronounced within the right upper lobe. -Duonebs scheduled and prn -Solumedrol IV -Protonix po for GI prophylaxis -IV antibiotics: Zithromax and Rocephin -Guaifenesin BID -Sputum culture pending results -Blood cultures pending Elevated troponin, patient denies chest pain r/o ACS Troponin 0.15, ck-mb 6.8 -Possibly demand ischemia -Serial troponin 0.15-->0.16 -Serial EKG. EKG reviewed SR without ST changes noted -CPK improving Depression, chronic -Resume home medications zoloft DVT prophylaxis: SCDs Patient improved, DC home in stable condition to follow up as OP with PCP and consultants . Pt Condition on Discharge: Stable Discharge Disposition: Discharge Home Discharge Time: > 30 minutes Discharge Instructions DIET: Follow Instructions for: Heart Healthy Diet Activities you can perform: Regular-No Restrictions Follow up Referrals: PCP Follow-up - 2-3 Days New Medications: Cefuroxime (Ceftin) 250 Mg Tab 250 MG PO BID for Infection for 7 Days, #14 TAB Methylprednisolone Dosepak (Medrol Dosepak) 4 Mg Dspk 4 MG PO DIRECTED, #1 DSPK 0 Refills Per Pharmacist direction Azithromycin (Azithromycin) 250 Mg Tab 500 MG PO DAILY for Pneumonia, #3 TAB [guaiFENesin ER] () 600 MG TABCR 600 MG PO BID, #10 TAB Continued Medications: Sertraline (Zoloft) 100 Mg Tab 100 MG PO DAILY, #30 TAB 0 Refills Violet Coleman MD Oct 03, 2017 09:44
== END 2017-10-03 11:19 | disposition home or self-care (01) ==
LOC: NEPC 22:39 → NEDA 10-01 01:59 → NEDH 10-01 06:41 → NEPFCDU 10-01 12:10 → UNDODISOB 10-02 18:12
PROVIDERS: ADMIT Hospitalist; ATTEND Hospitalist
DX: J18.1 Lobar pneumonia, unspecified organism (principal); R74.8 Abnormal levels of other serum enzymes; I49.9 Cardiac arrhythmia, unspecified; F32.9 Major depressive disorder, single episode, unspecified; F17.210 Nicotine dependence, cigarettes, uncomplicated
CPT/HCPCS: 71275; 80048; 81001; 82550; 82552; 84484; 85025; 87040; 87070; 87205; 93005; 94640; 94664; 96361; 96365; 96367; 96375; 96376; 99291; G0378; J0456; J0696; J2920; J2930; J7040; J7050; Q9967

== ENCOUNTER 2018-01-28 12:03 | Inpatient (IN) ==
[2018-01-28] MEDS ORDERED: MethylPREDNISolone Sod Succinate Inj 125 MG/2 ML Vial IV.PUSH ONE (12:12)
[2018-01-28 12:50] LABS: Baso # (Auto) 0.1 th/mm3 (0.0-0.2); Baso % (Auto) 0.5 % (0.0-2.0); Eos # (Auto) 0.7 th/mm3 (0.0-0.4); Eos % (Auto) 5.9 % (0.0-4.0); Hematocrit 47.1 % (35.0-46.0); Hemoglobin 15.3 gm/dL (11.6-15.3); Lymph # (Auto) 2.5 th/mm3 (1.0-4.8); Lymph % (Auto) 22.6 % (9.0-44.0); Mean Corpuscular HGB Conc 32.6 % (32.0-36.0); Mean Corpuscular Hemoglobin 28.8 pg (27.0-34.0); Mean Corpuscular Volume 88.4 fL (80.0-100.0); Mean Platelet Volume 8.4 fL (7.0-11.0); Mono # (Auto) 0.7 th/mm3 (0.0-0.9); Mono % (Auto) 6.3 % (0.0-8.0); Neut # (Auto) 7.2 th/mm3 (1.8-7.7); Neut % (Auto) 64.7 % (16.0-70.0); Platelet Count 402 th/mm3 (150-450); Red Blood Count 5.33 mil/mm3 (4.00-5.30); Red Cell Distribution Width 16.5 % (11.6-17.2); White Blood Count 11.1 th/mm3 (4.0-11.0)
--- NOTE | 2018-01-28 12:50 | XR ---
EXAM DATE: 01/28/2018 12:40 PM EDT AGE/SEX: 43 years / Female INDICATIONS: Cough, fever, and congestion for 3 days. CLINICAL DATA: This is the patient's initial encounter. Patient reports that signs and symptoms have been present for 3 days and indicates a pain score of 0/10. MEDICAL/SURGICAL HISTORY: None. None. COMPARISON: No prior exams available for comparison. FINDINGS: Moderate hyperinflation. The heart and pulmonary vascularity are normal. The portion of the bony skel eton visualized is unremarkable. CONCLUSION: Moderate hyperinflation otherwise negative Electronically signed by: Antonio Ryan MD 01/28/2018 12:48 PM EDT
[2018-01-28 13:03] LABS: Calcium 9.2 mg/dL (8.5-10.1); Potassium 3.8 meq/L (3.5-5.1)
--- NOTE | 2018-01-28 13:51 | ED ---
HPI General Chief Complaint: Shortness of Breath/Dyspnea Stated Complaint: SOB Time Seen by Provider: 01/28/18 12:12 Source: patient Mode of arrival: ambulatory Limitations: no limitations History of Present Illness 43-year-old female came to the emergency room with history of shortness of breath that progressively worsening over past 1 week. Patient was a long-term smoker and quit 2 weeks ago. Patient says she has been coughing but no fever. She was in acute respiratory distress when she arrived. Oxygen saturation was 70% on room air. She was brought in emergently. Patient was having hard time talking. She says she has not been diagnosed with asthma or COPD. However she did have something similar that required breathing treatment couple months ago. Her still smokes around her. No history of chest pain. No history of recent long distance travel or prolonged hospitalization. MD Complaint: shortness of breath Onset (ago): week(s) (1) Related Data Home Medications Medication Instructions Recorded Confirmed Zoloft 100 mg PO DAILY 01/28/18 01/28/18 Previous Rx's Medication Instructions Recorded albuterol sulfate [Ventolin HFA] 2 puff INH Q4H PRN #1 g 02/01/18 budesonide-formoterol [Symbicort] 2 puff INH BID #1 g 02/01/18 famotidine 20 mg PO BID #60 tab 02/01/18 ipratropium bromide [Atrovent HFA] 2 puff INH QID #1 g 02/01/18 prednisone 40 mg PO DAILY #10 tab 02/01/18 Allergies Allergy/AdvReac Type Severity Reaction Status Date / Time No Known Allergies Allergy Verified 01/28/18 12:15 Review of Systems ROS Unobtainable All other systems reviewed negative except as stated in HPI Respiratory Reports [facility] Medical History Medical History Asthma (Acute) Surgical history unknown (Acute) Family History Family History Other Family history non-contributory Social History Social History Substance History: No History of Abuse Second Hand Smoke Exposure: Yes Smoking Status: Former smoker How Often Do You Have a Drink Containing Alcohol: Never Recent Travel in [facility] within the Last 8 Weeks: No Recent Out of Country Travel within the Last 8 Weeks: No Immunization History Tetanus Immunization: Unsure Hx Influenza Vaccine This Season: No Exam Narrative Exam Narrative: GENERAL: Awake, alert, significant respiratory distress, anxious SKIN: Focused skin assessment warm/dry. Cyanotic HEAD: Atraumatic. Normocephalic. EYES: Pupils equal and round. No scleral icterus. No injection or drainage. ENT: No nasal bleeding or discharge. Mucous membranes pink and moist. NECK: Trachea midline. No JVD. CARDIOVASCULAR: Regular rate and rhythm. No murmur appreciated. RESPIRATORY: Significant respiratory distress, tripoding, diminished air entry bilaterally with an expiratory wheeze GASTROINTESTINAL: Abdomen soft, non-tender, nondistended. Hepatic and splenic margins not palpable. MUSCULOSKELETAL: No obvious deformities. No clubbing. No cyanosis. No edema. NEUROLOGICAL: Awake and alert. No obvious cranial nerve deficits. Motor grossly within normal limits. Normal speech. PSYCHIATRIC: Appropriate mood and affect; insight and judgment normal. Course Initial Documented Vital Signs Pulse Rate 103 H 01/28/18 12:15 Respiratory Rate 40 H 01/28/18 12:15 Blood Pressure 85/51 L 01/28/18 12:15 Pulse Oximetry 81 L 01/28/18 12:15 Last Documented Vital Signs Temperature 98.0 F 02/01/18 08:00 Pulse Rate 68 02/01/18 08:32 Respiratory Rate 12 02/01/18 08:32 Blood Pressure 113/76 02/01/18 08:00 Pulse Oximetry 98 02/01/18 08:32 Critical Care Time Critical Care Time: Yes Total Critical Care Time: 60 Attestation: Acute respiratory distress with hypoxia. Multiple bronchodilator nebulizers administered, monitoring of oxygen and admission. Medical Decision Making MDM Narrative Medical decision making narrative: Patient was given 3 DuoNeb's [id number] emergently along with IV Solu-Medrol. Air entry significantly improved and patient was weaned from oxygen via nonrebreather to oxygen via nasal cannula. On nasal cannula oxygen saturation stayed above 95%. Patient acknowledged that she was feeling much better. Upon repeat auscultation there was some end expiratory wheeze and patient was given 2 albuterol nebulizers. I just reassessed her a little while ago and she continued to sound better. Have taken the supplemental oxygen off and monitoring her oxygen saturation is 91%. She has been educated about passive smoking. At this point I think it would be better to admit the patient. Chest x-ray is within normal limit. Labs are within normal limit. 3:22 PM patient continues to have oxygen saturation even on the blood gas of 84 % on room air. She has been put on 2 L of oxygen via nasal cannula and saturating 96%. I decided to admit her at this point. Awaiting for the hospitalist callback. Lab Data Result diagrams: 01/28/18 12:18 01/28/18 12:18 Lab Results 01/28/18 01/28/18 01/28/18 Range/Units 12:18 12:18 14:55 WBC 11.1 H (4.0-11.0) th/mm3 RBC 5.33 H (4.00-5.30) mil/mm3 Hgb 15.3 (11.6-15.3) gm/dL Hct 47.1 H (35.0-46.0) % MCV 88.4 (80.0-100.0) fL MCH 28.8 (27.0-34.0) pg MCHC 32.6 (32.0-36.0) % RDW 16.5 (11.6-17.2) % Plt Count 402 (150-450) th/mm3 MPV 8.4 (7.0-11.0) fL Neut % (Auto) 64.7 (16.0-70.0) % Lymph % (Auto) 22.6 (9.0-44.0) % [place] % (Auto) 6.3 (0.0-8.0) % Eos % (Auto) 5.9 H (0.0-4.0) % Baso % (Auto) 0.5 (0.0-2.0) % Neut # (Auto) 7.2 (1.8-7.7) th/mm3 Lymph # (Auto) 2.5 (1.0-4.8) th/mm3 [place] # (Auto) 0.7 (0.0-0.9) th/mm3 Eos # (Auto) 0.7 H (0.0-0.4) th/mm3 Baso # (Auto) 0.1 (0.0-0.2) th/mm3 WBC Differential . Differential Comment Auto diff final Puncture Site Right radial Patient Temperature 98.6 O2 Saturation 84 L* (90-100) % ABG pH 7.41 (7.380-7.420) ABG pCO2 35 L (38-42) mmHg ABG pO2 50 L* (61-120) mmHg ABG HCO3 22 (22-26) mmol/L ABG O2 Content 14.4 (12.0-20.0) Vol % ABG Base Excess -2.2 L (-2-2) mmol/L ABG Methemoglobin 0.4 (0-2) % Bk Test Present Hemoglobin 12.1 (12.0-16.0) G/DL Carboxyhemoglobin 1.1 (0-4) % O2 Delivery Device Room air Inspired O2 21 % Critical Value Yes Sodium 144 (136-145) meq/L Potassium 3.8 (3.5-5.1) meq/L Chloride 108 H (98-107) meq/L Carbon Dioxide 26.0 (21.0-32.0) meq/L Anion Gap 10 (5-15) meq/L BUN 22 H (7-18) mg/dL Creatinine 0.81 (0.50-1.00) mg/dL Estimated GFR 77 L (>89) mL/min Random Glucose 136 H (74-106) mg/dL Calcium 9.2 (8.5-10.1) mg/dL IgE (<= 214) kU/L 01/28/18 Range/Units 18:30 WBC (4.0-11.0) th/mm3 RBC (4.00-5.30) mil/mm3 Hgb (11.6-15.3) gm/dL Hct (35.0-46.0) % MCV (80.0-100.0) fL MCH (27.0-34.0) pg MCHC (32.0-36.0) % RDW (11.6-17.2) % Plt Count (150-450) th/mm3 MPV (7.0-11.0) fL Neut % (Auto) (16.0-70.0) % Lymph % (Auto) (9.0-44.0) % [place] % (Auto) (0.0-8.0) % Eos % (Auto) (0.0-4.0) % Baso % (Auto) (0.0-2.0) % Neut # (Auto) (1.8-7.7) th/mm3 Lymph # (Auto) (1.0-4.8) th/mm3 [place] # (Auto) (0.0-0.9) th/mm3 Eos # (Auto) (0.0-0.4) th/mm3 Baso # (Auto) (0.0-0.2) th/mm3 WBC Differential Differential Comment Puncture Site Patient Temperature O2 Saturation (90-100) % ABG pH (7.380-7.420) ABG pCO2 (38-42) mmHg ABG pO2 (61-120) mmHg ABG HCO3 (22-26) mmol/L ABG O2 Content (12.0-20.0) Vol % ABG Base Excess (-2-2) mmol/L ABG Methemoglobin (0-2) % Bk Test Hemoglobin (12.0-16.0) G/DL Carboxyhemoglobin (0-4) % O2 Delivery Device Inspired O2 % Critical Value Sodium (136-145) meq/L Potassium (3.5-5.1) meq/L Chloride (98-107) meq/L Carbon Dioxide (21.0-32.0) meq/L Anion Gap (5-15) meq/L BUN (7-18) mg/dL Creatinine (0.50-1.00) mg/dL Estimated GFR (>89) mL/min Random Glucose (74-106) mg/dL Calcium (8.5-10.1) mg/dL IgE 39.8 (<= 214) kU/L Imaging Data Radiologist's impression: Chest X-Ray 01/28/18 12:12 CONCLUSION: Moderate hyperinflation otherwise negative ECG Data Attestation: I personally reviewed and interpreted this ECG as follows: Interpretation: Twelve-lead EKG was reviewed by me. Normal sinus rhythm, normal axis, nonspecific ST-T wave changes. Heart rate of 92 bpm. Discharge Plan Discharge Disposition Patient Disposition: 30 Still Patient Discharge Condition Condition: Stable Discharge Order Discharge Orders: Discharge Order (Routine); Ordered 02/01/18 Ordered By: Edgard Lemus Discharge Details Diagnosis: Acute respiratory distress, Hypoxia, COPD with acute exacerbation, Asthma with status asthmaticus Physicians Team ED Provider: Anjana Godinez Primary Care Provider: Primary Care Susie Downing Attending Provider: Edgard Lemus Other Providers: Antonio Rico Discharge Interventions Interventions: ED Discharge Assessment Last Done: 01/28/18 17:34 Vital Signs Last Done: 01/28/18 14:30 Status ED Status: Left Department Discharge Information Discharge Date/Time: 01/28/18 19:03
[2018-01-28 15:02] LABS: ABG Base Excess -2.2 mmol/L (-2-2); ABG PCO2 35 mmHg (38-42); ABG PO2 50 mmHg (61-120)
[2018-01-28] MEDS ORDERED: Bisacodyl 10 MG Supp RECTAL PRN (15:34)
[2018-01-28] MEDS: Azithromycin 250 MG Tablet PO SCH (16:08)
--- NOTE | 2018-01-28 17:24 | P.HP ---
History of Present Illness Primary Care Physician: No Primary Care Physician History of Present Illness: This is a 43 yo female presents to the emergency department in respiratory distress. She was hypoxic saturation 70%. States she has been short of breath for 1 week with dry cough and wheezing. No fever, chills, chest pain and leg pain. Denies history of respiratory condition though she was admitted 4 months ago for COPD, pneumonia and elevated troponin from demand ischemia. She has been a smoker quit 2 weeks ago reports using 5 cigarettes a day for 20 years. In the emergency department, she received multiple doses of nebulization and IV steroids. She felt better and when she got up to use the restroom she again developed shortness of breath felt she is going to pass out. All other systems reviewed negative - Diagnosis (1) Acute respiratory distress (2) Hypoxia (3) COPD with acute exacerbation Inpatient Certification: I certify that the inpatient services were ordered in accordance with Medicare regulations governing the order. This includes certification that hospital inpatient services are reasonable and necessary and in the case of services not specified as inpatient-only under 42 CFR 419.22(n), that they are appropriately provided as inpatient services in accordance to with the 2-midnight benchmark under 43 CFR 412.3(e) Review of Systems All other systems reviewed negative except as stated in HPI PMFSH - History History Provided By: Patient - Medical History Medical History: Medical History (Last Updated 01/28/18 @ 17:28 by Edgard Lemus MD) Anxiety Depression GERD (gastroesophageal reflux disease) - Surgical History Surgical History: Surgical History (Last Updated 01/28/18 @ 17:29 by Edgard Lemus MD) No history of previous surgery - Family History Family History: Family History (Last Updated 01/28/18 @ 17:27 by Edgard Lemus MD) Other Family history non-contributory - Tobacco History Smoking Status: Former smoker - Alcohol History How Often Do You Have a Drink Containing Alcohol: Never - Substance Use History Substance History: No History of Abuse - Travel History Recent Travel in the [place] Within the Last 8 Weeks: No Recent Travel Out of the Country Within the Last 8 Weeks: No - Immunization History Tetanus Immunization: Unsure Hx Influenza Vaccine This Season: No Medications and Allergies Active Medications: Active Medications Acetaminophen (Tylenol) 650 mg PO Q4H PRN PRN Reason: Temp > 100.4 Al Hydroxide/Mg Hydroxide (Milk Of Magnesia Liq) 30 ml PO Q12H PRN PRN Reason: Mild Constipation Albuterol (Albuterol Neb (Prn)) 2.5 mg NEB Q2HR NEB PRN PRN Reason: SHORTNESS OF BREATH Albuterol (Duoneb Neb (Marlen)) 1 ampul NEB QID NEB MARLEN Azithromycin (Zithromax) 500 mg PO DAILY MARLEN Stop: 01/30/18 09:01 Last Admin: 01/28/18 16:08 Dose: 500 mg Bisacodyl (Dulcolax Supp) 10 mg RECTAL DAILY PRN PRN Reason: SEVERE CONSITIPATION Lactulose (Lactulose Liq) 30 ml PO DAILY PRN PRN Reason: SEVERE CONSITIPATION Methylprednisolone Sodium Succinate (Solumedrol Inj) 60 mg IV.PUSH Q6H MARLEN Metoclopramide HCl (Reglan Inj) 5 mg IV.PUSH Q6HR PRN; Protocol PRN Reason: NAUSEA OR VOMITING Ondansetron HCl (Zofran Inj) 4 mg IV.PUSH Q6H PRN PRN Reason: NAUSEA OR VOMITING Senna/Docusate Sodium (Georgette-Colace) 1 tab PO BID [facility] Sennosides (Senokot) 17.2 mg PO Q12H PRN PRN Reason: Moderate Constipation Sertraline HCl (Zoloft) 100 mg PO DAILY [facility] Sodium Chloride (Ns Flush) 2 ml IV.FLUSH PRN PRN PRN Reason: FLUSH AFTER USING IV ACCESS Sodium Chloride (Ns Flush) 2 ml IV.FLUSH BID [facility] Sodium Chloride (Ns Flush) 2 ml IV.FLUSH PRN PRN PRN Reason: FLUSH AFTER USING IV ACCESS Allergies Allergy/AdvReac Type Severity Reaction Status Date / Time No Known Allergies Allergy Verified 01/28/18 12:15 Home Medications Medication Instructions Recorded Confirmed Type Zoloft 100 mg PO DAILY 01/28/18 01/28/18 History Exam Vital signs: Vital Signs 01/28/18 12:15 01/28/18 12:19 01/28/18 12:20 Pulse Rate 103 H 96 H 98 H Respiratory Rate 40 H Blood Pressure 85/51 L Pulse Oximetry 81 L 100 100 01/28/18 13:30 01/28/18 14:19 01/28/18 14:30 Pulse Rate 112 H 112 H Respiratory Rate 23 27 H Blood Pressure 123/66 129/78 118/71 Pulse Oximetry 96 89 L 91 L 01/28/18 16:10 01/28/18 16:11 Pulse Rate 110 H Respiratory Rate 22 Blood Pressure 135/77 Pulse Oximetry 98 98 Intake & Output 01/27/18 01/28/18 01/28/18 18:59 06:59 18:59 Weight 44.452 kg Narrative: GENERAL: Well-developed and well-nourished in no distress SKIN: Warm and dry. HEAD: Atraumatic. Normocephalic. EYES: Pupils equal and round. No scleral icterus. No injection or drainage. ENT: No nasal bleeding or discharge. Mucous membranes pink and moist. NECK: Trachea midline. No JVD. CARDIOVASCULAR: Tachycardic RESPIRATORY: Equal breath sounds with bilateral expiratory wheezes GASTROINTESTINAL: Abdomen soft, non-tender, nondistended. MUSCULOSKELETAL: Extremities without clubbing, cyanosis, or edema. No obvious deformities. NEUROLOGICAL: Awake and alert. No obvious cranial nerve deficits. Motor grossly within normal limits. Five out of 5 muscle strength in the arms and legs. Normal speech. PSYCHIATRIC: Appropriate mood and affect; insight and judgment normal. Results - Labs CBC & Chem 7: 01/28/18 12:18 01/28/18 12:18 Labs: Laboratory Results - last 24 hr 01/28/18 01/28/18 01/28/18 12:18 12:18 14:55 WBC 11.1 H RBC 5.33 H Hgb 15.3 Hct 47.1 H MCV 88.4 MCH 28.8 MCHC 32.6 RDW 16.5 Plt Count 402 MPV 8.4 Neut % (Auto) 64.7 Lymph % (Auto) 22.6 [place] % (Auto) 6.3 Eos % (Auto) 5.9 H Baso % (Auto) 0.5 Neut # (Auto) 7.2 Lymph # (Auto) 2.5 [place] # (Auto) 0.7 Eos # (Auto) 0.7 H Baso # (Auto) 0.1 WBC Differential . Differential Comment Auto diff final Puncture Site Right radial Patient Temperature 98.6 O2 Saturation 84 L* ABG pH 7.41 ABG pCO2 35 L ABG pO2 50 L* ABG HCO3 22 ABG O2 Content 14.4 ABG Base Excess -2.2 L ABG Methemoglobin 0.4 Bk Test Present Hemoglobin 12.1 Carboxyhemoglobin 1.1 O2 Delivery Device Room air Inspired O2 21 Critical Value Yes Sodium 144 Potassium 3.8 Chloride 108 H Carbon Dioxide 26.0 Anion Gap 10 BUN 22 H Creatinine 0.81 Estimated GFR 77 L Random Glucose 136 H Calcium 9.2 - Imaging Impressions Chest X-Ray 01/28/18 12:12 CONCLUSION: Moderate hyperinflation otherwise negative Caprini VTE Risk Assessment Caprini VTE Risk Assessment: No/Low Risk (score <= 1) Caprini Risk Assessment Model: Point Value = 1 Point Value = 2 Point Value = 3 Point Value = 5 Age 41-60 Minor surgery BMI > 25 kg/m2 Swollen legs Varicose veins or History of unexplained or recurrent spontaneous Oral contraceptives or hormone replacement Sepsis (< 1 month) Serious lung disease, including pneumonia (< 1 month) Abnormal pulmonary function Acute myocardial infarction Congestive heart failure (< 1 month) History of inflammatory bowel disease Medical patient at bed rest Age 61-74 Arthroscopic surgery Major open surgery (> 45 min) Laparoscopic surgery (> 45 min) Malignancy Confined to bed (> 72 hours) Immobilizing plaster cast Central venous access Age >= 75 History of VTE Family history of VTE Factor V Leiden Prothrombin [id number] Lupus anticoagulant Anticardiolipin antibodies Elevated serum homocysteine Heparin-induced thrombocytopenia Other congenital or acquired thrombophilia Stroke (< 1 month) Elective arthroplasty Hip, pelvis, or leg fracture Acute spinal cord injury (< 1 month) Prophylaxis Regimen: Total Risk Factor Score Risk Level Prophylaxis Regimen 0-1 Low Early ambulation 2 Moderate Order ONE of the following: *Sequential Compression Device (SCD) *Heparin 5000 units SQ BID 3-4 Higher Order ONE of the following medications: *Heparin 5000 units SQ TID *Enoxaparin/Lovenox 40 mg SQ daily (WT < 150 kg, CrCl > 30 mL/min) *Enoxaparin/Lovenox 30 mg SQ daily (WT < 150 kg, CrCl > 10-29 mL/min) *Enoxaparin/Lovenox 30 mg SQ BID (WT < 150 kg, CrCl > 30 mL/min) AND/OR *Sequential Compression Device (SCD) 5 or more Highest Order ONE of the following medications: *Heparin 5000 units SQ TID (Preferred with Epidurals) *Enoxaparin/Lovenox 40 mg SQ daily (WT < 150 kg, CrCl > 30 mL/min) *Enoxaparin/Lovenox 30 mg SQ daily (WT < 150 kg, CrCl > 10-29 mL/min) *Enoxaparin/Lovenox 30 mg SQ BID (WT < 150 kg, CrCl > 30 mL/min) AND *Sequential Compression Device (SCD) Assessment and Plan - Assessment (1) Acute respiratory distress Code(s): R06.03 - Acute respiratory distress Status: Acute (2) Hypoxia Code(s): R09.02 - Hypoxemia Status: Acute (3) COPD with acute exacerbation Code(s): J44.1 - Chronic obstructive pulmonary disease with (acute) exacerbation Status: Acute - Plan 43-year-old female smoker presenting with shortness of breath, dyspnea on exertion, wheezing and dry cough. She was hypoxic saturation 70% in the emergency department. Received several doses of nebulization, IV steroids and oxygen with temporary relief. She will be admitted for further evaluation and treatment for COPD exacerbation. Start scheduled nebulization, IV steroids, Zithromax and oxygen to keep saturation at least 92%. Tobacco cessation. Consult pulmonary. Multiple medical conditions of GERD, anxiety and depression. Continue outpatient medications as appropriate DVT prophylaxis with SCD and early ambulation Discharge Planning: Home when clinically improved
[2018-01-28] MEDS: MethylPREDNISolone Sod Succinate Inj 40 MG/ML Vial IV.PUSH SCH (17:31)
--- NOTE | 2018-01-28 18:31 | MB ---
cc: Bri Rico MD DATE: 01/28/2018 HISTORY OF PRESENT ILLNESS: Ms. Poole is a 42-year-old white female with one prior admission here in September for respiratory insufficiency. It was felt that she had COPD. She left on some medications, but had no insurance, had no followup arranged, and over the course of the last 2 or 3 months has just gradually declined again. For the last week, she has really struggled to breathe. She became frightened today, presented to the emergency room with sats in the upper 70s, quite severely distressed. She received aerosol treatments, IV corticosteroids and oxygen and is feeling better, although she still says she feels very tight in her chest. A chest x-ray was negative. A chest x-ray on previous admission in September revealed some patchy infiltrates. She was treated for pneumonia. Although she was a former smoker, she was never really a heavy smoker, but over the course of 20 years, she would smoke several cigarettes a day. She has also had secondhand smoke exposure most of her adult life. It is also interesting that she was very ALLERGIC TO CATS growing up and within the last year or so she has had 2 cats in the home. When she touches them and then touches her eyes, she gets itching and watery eyes. She has not previously been diagnosed to have asthma, certainly not as a child. However, her mother had asthma and allergies. No previous cardiovascular history. She has had no anginal chest pain, but she has had tightness in her chest. She has no inhalers at home. She has cough, but it is dry, it is nonproductive. She has chronic reflux disease and had an ulcer at 17 years of age. Again, she has had no regular medical followup, she has no insurance and she does get indigestion frequently and uses [id number] ranitidine. No frontal headache or sinus symptoms. Recent diarrhea. No recent travel. The only animal exposures is to cats, to which she is probably allergic. PAST SURGICAL HISTORY: No prior surgeries. ALLERGIES: NO MEDICATION ALLERGIES KNOWN. CURRENT MEDICATIONS: Reviewed in the EMR. FAMILY HISTORY: Mother with history of allergies and asthma. Father apparently fine. A brother in good health. A daughter 22 years of age who did not grow up with allergies or asthma. 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 She lives with her boyfriend who smokes. Two cats at home. No other inhalation exposures. She denies any alcohol or illicit drug use. REVIEW OF SYSTEMS: Negative other than that noted above. PHYSICAL EXAMINATION: GENERAL: She is awake, alert, fairly comfortable at rest, but breathing at about 24-26 times a minute, a little breathless when she talks. VITAL SIGNS: Pulse rate is 100-110, regular. O2 saturations up from the 80s-98 on 2 liters. Blood pressure is 130/70. HEENT: Sclerae are anicteric. Mucous membranes are moist. NECK: Neck veins are flat. CHEST: Diminished breath sounds throughout with prolonged expiration and wheezing. No audible murmur. HEART: Regular rhythm. No audible S3. ABDOMEN: Soft, nontender. EXTREMITIES: No peripheral edema or calf tenderness. No clubbing. LABORATORY DATA: White count is 11,000; hemoglobin is 15; eosinophils 6%. Arterial blood gas on room air on presentation, pO2 of 50, pH of 7.4, pCO2 of 35. Electrolytes are normal. BUN is 22, creatinine 0.8. DISCUSSION: Ms. Poole probably has asthma. SHE IS PROBABLY ALSO ALLERGIC TO CATS and has significant secondhand smoke exposure and was smoking herself until about 2 weeks ago. She has responded well to the emergency room treatment. We will continue her on frequent aerosolized bronchodilators, along with corticosteroids and Zithromax has been started. She is not producing much sputum. We will monitor her peak flows, O2 saturations. I will check an IgE level and we will do a spirometry tomorrow. Further diagnostic and/or therapeutic intervention will depend on her ongoing clinical course and these additional studies. She is clearly going to need a followup. Maybe she is eligible to come to the clinic here since she has no insurance. She has been on no bronchodilator therapy since her admission in September and has simply continued to decline. R. MD FÉLIX Andrews/MOISES , 06:08 PM , 06:30 PM
[2018-01-28] MEDS ORDERED: ALPRAZolam 0.25 MG Tablet PO ONE (21:43)
[2018-01-29] MEDS: Dextrose 5%/NaCl 0.45% Inj 1,000 ML IV.CONT SCH ×2 (01:09→23:47)
[2018-01-29] MEDS: Senna/Docusate Sodium 8.6/50 MG Tablet PO SCH ×3 (01:10→23:23)
[2018-01-29] MEDS: MethylPREDNISolone Sod Succinate Inj 40 MG/ML Vial IV.PUSH SCH ×5 (01:11→23:43)
[2018-01-29] MEDS: Sertraline 100 MG Tablet PO SCH (08:24)
[2018-01-29] MEDS: Azithromycin 250 MG Tablet PO SCH (08:24)
[2018-01-29] MEDS: Acetaminophen 325 MG Tablet PO PRN ×2 (08:24→13:16)
--- NOTE | 2018-01-29 13:36 | ECG ---
Date Performed: 01/28/2018 Time Performed: 12:16:08 PTAGE: 43 years EKG: Sinus rhythm WITH SINUS ARRHYTHMIA RIGHT ATRIAL ENLARGEMENT BORDERLINE RIGHT AXIS DEVIATION MODERATE ST DEPRESSIO N, new since prior tracing- cannot rule out ischemia Clinical correlation is recommended ABNORMAL ECG PREVIOUS TRACING : 10/01/2017 11.28 DOCTOR: Bin Salcido Interpretating Date/Time 01/29/2018 13:29:36
--- NOTE | 2018-01-29 16:08 | P.PN ---
Subjective Interval history: F/U resp distress. She feels better but still on 2-4 L nasal cannula with dyspnea on exertion even with minimal activity. Discussed with pulmonary case management Physical Exam Vital signs: Vital Signs 01/28/18 16:10 01/28/18 16:11 01/28/18 20:00 Temperature 98.2 F Pulse Rate 110 H 98 H Respiratory Rate 22 22 Blood Pressure 135/77 128/77 Pulse Oximetry 98 98 96 01/28/18 20:38 01/28/18 23:31 01/29/18 00:00 Temperature 97.8 F Pulse Rate 118 H 93 H 88 Respiratory Rate 26 H 16 20 Blood Pressure 132/79 Pulse Oximetry 97 01/29/18 03:45 01/29/18 08:00 01/29/18 09:51 Temperature 97.7 F Pulse Rate 76 83 85 Respiratory Rate 15 18 17 Blood Pressure 130/81 Pulse Oximetry 95 98 01/29/18 12:00 Temperature 98.0 F Pulse Rate 100 H Respiratory Rate 20 Blood Pressure 133/84 Pulse Oximetry Intake & Output 01/28/18 01/29/18 01/29/18 18:59 06:59 18:59 Intake Total 360 / 360 Balance 360 / 360 Weight 44.452 kg 47.9 kg Intake: Oral 360 / 360 Other: # Voids 2 Narrative: GENERAL: Well-developed and well-nourished in no distress SKIN: Warm and dry. CARDIOVASCULAR: Tachycardic RESPIRATORY: Equal breath sounds with bilateral expiratory wheezes GASTROINTESTINAL: Abdomen soft, non-tender, nondistended. MUSCULOSKELETAL: Extremities without clubbing, cyanosis, or edema. No obvious deformities. NEUROLOGICAL: Awake and alert. No obvious cranial nerve deficits. Motor grossly within normal limits. Five out of 5 muscle strength in the arms and legs. Normal speech. PSYCHIATRIC: Appropriate mood and affect; insight and judgment normal. Results - Labs CBC & Chem 7: 01/28/18 12:18 01/28/18 12:18 Microbiology 01/28/18 12:18 Blood - Peripheral Aerobic Blood Culture - Preliminary No growth in 1 day 01/28/18 12:18 Blood - Peripheral Anaerobic Blood Culture - Preliminary No growth in 1 day 01/28/18 12:18 Blood - Peripheral Aerobic Blood Culture - Preliminary No growth in 1 day 01/28/18 12:18 Blood - Peripheral Anaerobic Blood Culture - Preliminary No growth in 1 day Assessment and Plan - Assessment (1) Acute respiratory distress Code(s): R06.03 - Acute respiratory distress Status: Acute (2) Hypoxia Code(s): R09.02 - Hypoxemia Status: Acute (3) COPD with acute exacerbation Code(s): J44.1 - Chronic obstructive pulmonary disease with (acute) exacerbation Status: Acute - Plan 43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 She was hypoxic saturation 70% in the emergency department. Asthma/COPD exacerbation. Slightly improved continue scheduled nebulization, IV steroids, Zithromax and oxygen to keep saturation at least 92%. Tobacco cessation. Consulted pulmonary. Check IgE and PFTs Multiple medical conditions of GERD, anxiety and depression. Continue outpatient medications as appropriate DVT prophylaxis with SCD and early ambulation Discharge Planning: Home when clinically improved. Discussed with case management she needs mandatory follow-up and possibly home oxygen
[2018-01-29] MEDS ORDERED: Aluminum/Magnesium/Simethacone Susp 30 ML UDC PO PRN (16:20)
[2018-01-29] MEDS: Famotidine 20 MG Tablet PO SCH (20:02)
[2018-01-29] MEDS: ALPRAZolam 0.25 MG Tablet PO PRN (23:42)
[2018-01-30] MEDS: MethylPREDNISolone Sod Succinate Inj 40 MG/ML Vial IV.PUSH SCH (05:59)
[2018-01-30] MEDS: Sertraline 100 MG Tablet PO SCH (09:33)
[2018-01-30] MEDS: Famotidine 20 MG Tablet PO SCH ×2 (09:33→22:16)
[2018-01-30] MEDS: Azithromycin 250 MG Tablet PO SCH (09:33)
[2018-01-30] MEDS: Senna/Docusate Sodium 8.6/50 MG Tablet PO SCH ×2 (09:33→22:17)
--- NOTE | 2018-01-30 17:23 | P.PN ---
Subjective Interval history: Follow-up COPD/asthma. States she is improving but still dyspneic on minimal exertion. Continues on nasal cannula. Peak flow only 175 Physical Exam Vital signs: Vital Signs 01/29/18 20:00 01/29/18 20:30 01/29/18 23:30 Temperature 98.1 F Pulse Rate 101 H 83 88 Respiratory Rate 22 16 18 Blood Pressure 126/81 Pulse Oximetry 94 L 94 L 01/30/18 00:00 01/30/18 03:49 01/30/18 04:00 Temperature 98.3 F 97.8 F Pulse Rate 103 H 94 H 95 H Respiratory Rate 20 16 20 Blood Pressure 132/83 115/75 Pulse Oximetry 95 95 01/30/18 08:00 01/30/18 09:00 01/30/18 12:00 Temperature 97.8 F 97.8 F Pulse Rate 84 84 82 Respiratory Rate 18 18 Blood Pressure 133/89 131/84 Pulse Oximetry 97 97 93 L 01/30/18 15:30 Temperature Pulse Rate 82 Respiratory Rate 18 Blood Pressure Pulse Oximetry Intake & Output 01/29/18 01/30/18 01/30/18 18:59 06:59 18:59 Intake Total 1236 / 1236 1480 / 1480 Balance 1236 / 1236 1480 / 1480 Weight 48.1 kg Intake: IV 496 / 496 1000 / 1000 D5W/1/2 NS Inj 1,000 ML @ 42 496 / 496 1000 / 1000 mls/hr IV[facility]CONT [id number] Rx# :[id number] Oral 740 / 740 480 / 480 Other: # Voids 4 3 Date of Last Bowel Movement 01/29/18 # Bowel Movements 0 Narrative: GENERAL: Well-developed and well-nourished in no distress SKIN: Warm and dry. CARDIOVASCULAR: Regular rate and rhythm RESPIRATORY: Equal breath sounds with no wheezes GASTROINTESTINAL: Abdomen soft, non-tender, nondistended. MUSCULOSKELETAL: Extremities without clubbing, cyanosis, or edema. No obvious deformities. NEUROLOGICAL: Awake and alert. No obvious cranial nerve deficits. Motor grossly within normal limits. Five out of 5 muscle strength in the arms and legs. Normal speech. Results - Labs CBC & Chem 7: 01/28/18 12:18 01/28/18 12:18 Laboratory Results - last 24 hr 01/28/18 18:30 IgE 39.8 Microbiology 01/28/18 12:18 Blood - Peripheral Aerobic Blood Culture - Preliminary No growth in 2 days 01/28/18 12:18 Blood - Peripheral Anaerobic Blood Culture - Preliminary No growth in 2 days 01/28/18 12:18 Blood - Peripheral Aerobic Blood Culture - Preliminary No growth in 2 days 01/28/18 12:18 Blood - Peripheral Anaerobic Blood Culture - Preliminary No growth in 2 days Assessment and Plan - Assessment (1) Acute respiratory distress Code(s): R06.03 - Acute respiratory distress Status: Acute (2) Hypoxia Code(s): R09.02 - Hypoxemia Status: Acute (3) COPD with acute exacerbation Code(s): J44.1 - Chronic obstructive pulmonary disease with (acute) exacerbation Status: Acute - Plan 43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 She was hypoxic saturation 70% in the emergency department. Asthma/COPD exacerbation. Slowly improving. Peak flow only 175 needs to be at least 200. Continue scheduled nebulization, IV steroids decreased to twice a day and start steroid inhaler, Zithromax and oxygen to keep saturation at least 92%. Tobacco cessation. Consulted pulmonary. Check IgE, patient may be allergic to cat and might need to get rid of her pet cat Multiple medical conditions of GERD, anxiety and depression. Continue outpatient medications as appropriate DVT prophylaxis with SCD and early ambulation Discharge Planning: Home when clinically improved. Discussed with case management she needs mandatory follow-up and possibly home oxygen
[2018-01-30] MEDS: MethylPREDNISolone Sod Succinate Inj 125 MG/2 ML Vial IV.PUSH SCH (22:16)
[2018-01-30] MEDS: Budesonide-Formoterol 160/4.5 MCG 6 GM Inhaler INH SCH (22:25)
[2018-01-30] MEDS: Dextrose 5%/NaCl 0.45% Inj 1,000 ML IV.CONT SCH (22:25)
[2018-01-30] MEDS: ALPRAZolam 0.25 MG Tablet PO PRN (22:25)
[2018-01-31] MEDS: MethylPREDNISolone Sod Succinate Inj 125 MG/2 ML Vial IV.PUSH SCH ×2 (10:42→21:22)
[2018-01-31] MEDS: Famotidine 20 MG Tablet PO SCH ×2 (10:44→21:22)
[2018-01-31] MEDS: Senna/Docusate Sodium 8.6/50 MG Tablet PO SCH ×2 (10:44→21:22)
[2018-01-31] MEDS: Sertraline 100 MG Tablet PO SCH (10:44)
[2018-01-31] MEDS: Budesonide-Formoterol 160/4.5 MCG 6 GM Inhaler INH SCH ×2 (10:45→21:23)
--- NOTE | 2018-01-31 17:00 | P.PN ---
Subjective Interval history: F/U COPD. Dloing better still on NC. OOB in the room only, PF 200 Physical Exam Vital signs: Vital Signs 01/30/18 20:00 01/30/18 20:24 01/31/18 00:00 Temperature 97.9 F 98.4 F Pulse Rate 85 84 99 H Respiratory Rate 20 20 20 Blood Pressure 136/83 143/91 H Pulse Oximetry 98 97 97 01/31/18 04:00 01/31/18 08:00 01/31/18 11:38 Temperature 97.9 F 97.9 F Pulse Rate 66 71 64 Respiratory Rate 20 18 14 Blood Pressure 116/56 L 117/79 Pulse Oximetry 97 98 98 01/31/18 12:00 01/31/18 16:53 Temperature 97.9 F Pulse Rate 84 72 Respiratory Rate 16 14 Blood Pressure 132/84 Pulse Oximetry 96 Intake & Output 01/30/18 01/31/18 01/31/18 18:59 06:59 18:59 Intake Total 720 / 720 1000 / 1000 Balance 720 / 720 1000 / 1000 Weight 48.1 kg Intake: IV 1000 / 1000 D5W/1/2 NS Inj 1,000 ML @ 42 1000 / 1000 mls/hr IV.CONT .[id number] Rx# :[id number] Oral 720 / 720 Other: # Voids 3 3 Date of Last Bowel Movement 01/29/18 # Bowel Movements 1 Narrative: GENERAL: Well-developed and well-nourished in no distress SKIN: Warm and dry. CARDIOVASCULAR: Regular rate and rhythm RESPIRATORY: Equal breath sounds with no wheezes GASTROINTESTINAL: Abdomen soft, non-tender, nondistended. MUSCULOSKELETAL: Extremities without clubbing, cyanosis, or edema. No obvious deformities. NEUROLOGICAL: Awake and alert. No obvious cranial nerve deficits. Motor grossly within normal limits. Five out of 5 muscle strength in the arms and legs. \ Results - Labs CBC & Chem 7: 01/28/18 12:18 01/28/18 12:18 Microbiology 01/28/18 12:18 Blood - Peripheral Aerobic Blood Culture - Preliminary No growth in 3 days 01/28/18 12:18 Blood - Peripheral Anaerobic Blood Culture - Preliminary No growth in 3 days 01/28/18 12:18 Blood - Peripheral Aerobic Blood Culture - Preliminary No growth in 3 days 01/28/18 12:18 Blood - Peripheral Anaerobic Blood Culture - Preliminary No growth in 3 days Assessment and Plan - Assessment (1) Acute respiratory distress Code(s): R06.03 - Acute respiratory distress Status: Acute (2) Hypoxia Code(s): R09.02 - Hypoxemia Status: Acute (3) COPD with acute exacerbation Code(s): J44.1 - Chronic obstructive pulmonary disease with (acute) exacerbation Status: Acute - Plan 43-year-old female 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 She was hypoxic saturation 70% in the emergency department. Asthma/COPD exacerbation. Slowly improving. Peak flow 200. Continue scheduled nebulization, IV steroids switch to po in am, steroid inhaler and oxygen to keep saturation at least 92%. S/p Zpak. Tobacco cessation. Consulted pulmonary. IgE only 39.8 Multiple medical conditions of GERD, anxiety and depression. Continue outpatient medications as appropriate DVT prophylaxis with SCD and early ambulation Discharge Planning: Home when clinically improved. Discussed with case management she needs mandatory follow-up and maybe home oxygen. Possible dc in am
[2018-01-31] MEDS: Dextrose 5%/NaCl 0.45% Inj 1,000 ML IV.CONT SCH (21:20)
[2018-01-31] MEDS: ALPRAZolam 0.25 MG Tablet PO PRN (22:36)
[2018-02-01] MEDS: Sertraline 100 MG Tablet PO SCH (08:52)
[2018-02-01] MEDS: Famotidine 20 MG Tablet PO SCH (08:52)
[2018-02-01] MEDS: Senna/Docusate Sodium 8.6/50 MG Tablet PO SCH (08:53)
[2018-02-01] MEDS: Budesonide-Formoterol 160/4.5 MCG 6 GM Inhaler INH SCH (08:54)
[2018-02-01] MEDS ORDERED: predniSONE 20 MG Tablet PO SCH (09:00)
[2018-02-01] MEDS ORDERED: Tiotropium Bromide 18 MCG/ACT Inhaler INH SCH (10:30)
--- NOTE | 2018-02-01 13:04 | P.DS ---
Date of admission: 01/28/18 17:34 Primary care physician: No Primary Care Physician Brief History from admission: This is a 43 yo female presents to the emergency department in respiratory distress. She was hypoxic saturation 70%. States she has been short of breath for 1 week with dry cough and wheezing. No fever, chills, chest pain and leg pain. Denies history of respiratory condition though she was admitted 4 months ago for COPD, pneumonia and elevated troponin from demand ischemia. She has been a smoker quit 2 weeks ago reports using 5 cigarettes a day for 20 years. In the emergency department, she received multiple doses of nebulization and IV steroids. She felt better and when she got up to use the restroom she again developed shortness of breath felt she is going to pass out. 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 She was hypoxic saturation 70% in the emergency department. Asthma/COPD exacerbation. Improved currently on room air ambulating in the hallway. Peak flow 200. Continue albuterol/Atrovent inhaler, steroid inhaler, prednisone and as needed oxygen to keep saturation at least 92%. S/p Zpak. Tobacco cessation. Consulted pulmonary. IgE only 39.8 Multiple medical conditions of GERD, anxiety and depression. Continue outpatient medications as appropriate DVT prophylaxis with SCD and early ambulation - Time Spent with Patient Total time spent providing and/or coordinating discharge services: - Quality: VTE Deep Vein Thrombosis/Pulmonary Embolism Present on Admission: No Exam Vital signs: Vital Signs 01/31/18 16:00 01/31/18 16:53 01/31/18 19:15 Temperature 98.0 F Pulse Rate 80 72 82 Respiratory Rate 16 14 Blood Pressure 135/81 Pulse Oximetry 95 01/31/18 20:00 01/31/18 21:31 01/31/18 21:32 Temperature 98.3 F Pulse Rate 87 85 Respiratory Rate 18 16 Blood Pressure 127/92 H Pulse Oximetry 94 L 94 L 02/01/18 00:00 02/01/18 04:00 02/01/18 08:00 Temperature 98.1 F 97.7 F 98.0 F Pulse Rate 83 83 78 Respiratory Rate 18 18 16 Blood Pressure 119/79 125/81 113/76 Pulse Oximetry 92 L 94 L 95 02/01/18 08:32 02/01/18 11:50 Temperature Pulse Rate 68 Respiratory Rate 12 Blood Pressure Pulse Oximetry 98 98 Intake & Output 01/31/18 02/01/18 02/01/18 18:59 06:59 18:59 Intake Total 1400 / 1400 1000 / 1000 Balance 1400 / 1400 1000 / 1000 Intake: IV 1000 / 1000 D5W/1/2 NS Inj 1,000 ML @ 42 1000 / 1000 mls/hr IV.CONT .[id number] [facility] Rx# :[id number] Oral 1400 / 1400 Other: # Voids 6 2 Date of Last Bowel Movement 02/01/18 # Bowel Movements 1 1 Narrative: GENERAL: Well-developed and well-nourished in no distress SKIN: Warm and dry. CARDIOVASCULAR: Regular rate and rhythm RESPIRATORY: Equal breath sounds with no wheezes GASTROINTESTINAL: Abdomen soft, non-tender, nondistended. MUSCULOSKELETAL: Extremities without clubbing, cyanosis, or edema. No obvious deformities. NEUROLOGICAL: Awake and alert. No obvious cranial nerve deficits. Motor grossly within normal limits. Five out of 5 muscle strength in the arms and legs. \ Results Procedures completed during hospitalization: None Labs on day of discharge: Preliminary micro results at discharge 01/28/18 12:18 Aerobic Blood Culture - Preliminary Blood - Peripheral No growth in 4 days Anaerobic Blood Culture - Preliminary No growth in 4 days 01/28/18 12:18 Aerobic Blood Culture - Preliminary Blood - Peripheral No growth in 4 days Anaerobic Blood Culture - Preliminary No growth in 4 days - Impressions ITS Impressions Chest X-Ray 01/28/18 12:12 CONCLUSION: Moderate hyperinflation otherwise negative Discharge Plan - Discharge Disposition Patient Disposition: 01 Discharge Home - Discharge Condition Condition: Stable - Discharge Order Discharge Orders: Discharge Order (Routine); Ordered 02/01/18 Ordered By: Edgard Lemus - Physicians Team Primary Care Provider: Primary Care Susie Downing Attending Provider: Edgard Lemus Other Providers: Antonio Rico MD
== END 2018-02-01 12:30 | disposition home or self-care (01) ==
LOC: NEDA 12:03 → NEPD 12:03 → N07 18:53
PROVIDERS: ADMIT Internal Medicine; ATTEND Internal Medicine